=== PATIENT | female | born 1995 | race Caucasian/White ===

== ENCOUNTER 2021-04-24 12:01 | Outpatient (CLI) | payer MEDICAID, SELFPAY ==
[2021-04-24 12:20] VITALS: BP 115/67; PULSE 101
[2021-04-24 12:32] LABS: Nitrazine Paper, PH Negative
[2021-04-24 12:50] VITALS: BMI 26.8
== END 2021-04-24 12:49 | disposition home or self-care (01) ==
LOC: OPOB 12:08 → OBGYN 12:09
PROVIDERS: Visit Provider Family Medicine
DX: O26.899 Other specified pregnancy related conditions, unspecified trimester (principal); Z3A.00 Weeks of gestation of pregnancy not specified; N89.8 Other specified noninflammatory disorders of vagina
CPT/HCPCS: 59025; 83986; 99211

== ENCOUNTER 2021-04-26 19:45 | Inpatient (IN) | payer MEDICAID, SELFPAY ==
[2021-04-26] VITALS (15 sets, daily range): BP systolic 114–131; BP diastolic 55–67; PULSE 83–120; RESP 16–18; TEMP 36.6–36.9
[2021-04-26 19:42] LABS: Basophils # 0.1 10^3/uL (0.0-0.1); Basophils % 0.4 %; Hematocrit 36.3 % (37.0-47.0); Hemoglobin 11.8 g/dL (11.5-15.3); Lymphocytes # 1.8 10^3/uL (0.8-4.8); Lymphocytes % 5.6 %; Mean Corpuscular HGB Conc 32.5 g/dL (30.0-36.0); Mean Corpuscular Hemoglobin 28.4 pg (28.0-34.0); Mean Corpuscular Volume 87.5 fL (81-99); Mean Platelet Volume 10.8 fL (7.4-10.4); Monocytes # 2.2 10^3/uL (0.2-0.9); Monocytes % 6.8 %; Neutrophils # 28.12 10^3/uL (1.8-7.7); Neutrophils % 85.6 %; Nucleated Red Blood Cells % 0 %; Platelet Count 276 10^3/cmm (130-400); Red Blood Count 4.15 10^6/uL (4.1-5.3); Red Cell Distribution Width 13.3 % (12.1-15.1)
[2021-04-26 19:44] LABS: White Blood Count 32.8 10^3/uL (4.0-10.0)
[2021-04-26] MEDS: fentaNYL 50 mcg/mL INJ 2mL IVP (20:29)
[2021-04-26] MEDS: ampicillin 2,000 MG in sodium chloride 0.9% (plus) 50 ML 100 MG IV (20:46)
[2021-04-26] MEDS: ondansetron 2 mg/ML SDV 2 mL 4 MG IVP (20:46)
[2021-04-26] MEDS: lactated ringers 1,000 ML 999 ML IV (20:47)
[2021-04-26] MEDS: dextrose 5%-lactated ringers 1,000 ML 125 ML IV (21:00)
[2021-04-26] MEDS: oxytocin 30 UNIT/500 ML BAG 600 UNIT IV (21:37)
--- NOTE | 2021-04-26 21:49 | PM.DELIVERY ---
Delivery Note: Date of delivery: April 26, 2021 Pre-Delivery Course: The patient is a 25-year-old 2 para 1-0-0-1 with an estimated gestational age of 38 weeks and 2 days who presented to the hospital in active labor. She been having contractions throughout the day that got progressively worse. She seen in the office earlier in the day and was found to be 2 cm dilated and 80% effaced. When she arrived to the hospital she was 3 cm dilated and on a percent effaced. She desired an epidural, but as a part of her CBC, she was found to have a white blood count of 32,000. She had no fever, and no other signs of any infection. Regardless, out of an abundance of caution the patient was placed on ampicillin and gentamicin. An amniotomy was performed. She then progressed to complete without difficulty. Delivery: DELIVERY: The patient progressed to complete without difficulty. She delivered a female with a weight of 7 pounds 3 ounces with Apgars of 7, 9. The baby was delivered from the TREVA position and placed on the mother's abdomen. The cord was then clamped and cut. There was no nuchal cord. There was no obvious meconium initially, but there was meconium stained fluid that was suctioned from the baby's lungs later. The placenta and 3 vessel cord were delivered intact shortly thereafter. The perineum and vaginal vault were carefully examined. No lacerations were noted. Both the mother and the baby were in stable condition. Post-Delivery Status: Good A&P Assessment and plan (1) 38 weeks gestation of : Status: Acute (2) Vaginal delivery: At this point anticipate the patient will have a routine hospital course. Because of her leukocytosis, we will be more mindful of any indications of a fever. We will recheck her CBC in the morning. Status: Acute (3) Leukocytosis: Status: Acute Coding Level of Care Code Acute Superintendent Stations for Chg Fwd Diagnoses 38 weeks gestation of Z3A.38 Vaginal delivery O80 Leukocytosis D72.829
[2021-04-26] MEDS: benzocaine-menthol 78 gm Canister 1 SPRAY TOPICAL (23:56)
[2021-04-26] MEDS: lanolin oint 7 gm 1 APPLIC TOPICAL (23:57)
[2021-04-26] MEDS: HYDROcodone-acetaminophen 5-325 mg Tablet PO (23:57)
[2021-04-27] VITALS (11 sets, daily range): BP systolic 99–115; BP diastolic 52–74; PULSE 67–118; RESP 16; TEMP 36.7–37.3; O2SAT 95–99
[2021-04-27 05:09] LABS: Hemoglobin 11.3 g/dL (11.5-15.3); Mean Corpuscular Volume 89.5 fL (81-99); Red Cell Distribution Width 13.3 % (12.1-15.1)
[2021-04-27 05:26] LABS: Mean Corpuscular HGB Conc 32.3 g/dL (30.0-36.0); Mean Corpuscular Hemoglobin 28.9 pg (28.0-34.0); Mean Platelet Volume 11.2 fL (7.4-10.4); Platelet Count 268 10^3/cmm (130-400); Red Blood Count 3.91 10^6/uL (4.1-5.3)
[2021-04-27 05:29] LABS: White Blood Count 33.8 10^3/uL (4.0-10.0)
[2021-04-27 05:45] LABS: Hematocrit 35.7 % (37.0-47.0); Hemoglobin 11.5 g/dL (11.5-15.3); Mean Corpuscular HGB Conc 32.2 g/dL (30.0-36.0); Mean Corpuscular Hemoglobin 29.1 pg (28.0-34.0); Mean Corpuscular Volume 90.4 fL (81-99); Mean Platelet Volume 11.4 fL (7.4-10.4); Platelet Count 277 10^3/cmm (130-400); Red Blood Count 3.95 10^6/uL (4.1-5.3); Red Cell Distribution Width 13.2 % (12.1-15.1)
[2021-04-27 06:04] LABS: White Blood Count 33.6 10^3/uL (4.0-10.0)
[2021-04-27 06:05] LABS: Absolute Neutrophil 29.6 10^3/cmm (1.4-6.5); Absolute Segmented Neutrophil 25.5 10/cmm (1.6-7.1); Eosinophils 0 %; Giant Platelets Trace; Lymphocytes 8 %; Platelet Estimate Normal (Normal); Segmented Neutrophils 76 %; Total Cells Counted 100 (0-100)
[2021-04-27] MEDS: HYDROcodone-acetaminophen 5-325 mg Tablet PO (07:23)
[2021-04-27] MEDS: ibuprofen 800 mg tablet PO ×2 (09:10→21:01)
[2021-04-27] MEDS: docusate sodium 100 mg Capsule PO (09:10)
--- NOTE | 2021-04-27 19:40 | PM.OBGYDC ---
Discharge Providers CUSTOMER ACCOUNT REPRESENTATIVE Date of Admission: 04/26/21 19:45 Date of Discharge: 04/27/21 Attending Provider at Admission: Nabeel Pradhan MD Attending Provider at Discharge: Nabeel Pradhan MD Diagnoses at Discharge Discharge Diagnosis (1) 38 weeks gestation of : Status: Acute (2) Vaginal delivery: Status: Acute (3) Leukocytosis: Status: Acute Reason for Visit Reason for Visit: contractions Hospital Course Hospital Course The patient presented to the hospital in active labor. She desired an epidural but was found to have a white blood count of 32,000. She had no other signs of infection. She does have a boy at home that was recently diagnosed with croup. She had no upper respiratory symptoms. An amniotomy was performed. She progressed to complete within 2 hours. She pushed through several contractions and delivered a healthy appearing infant with no problems. There was no sign of chorioamnionitis. Out of an abundance of caution, she was given a dose of both ampicillin and gentamicin. The delivery was unremarkable. She had no tears. Her course was also unremarkable. She breast-fed well. She had minimal bleeding. Her pain was well controlled with ibuprofen. There were no concerns. Information Peripartum Data: Delivery Method: Vaginal Physical Exam Narrative: EXAM NARRATIVE: The patient is alert. She appears comfortable. Her heart has a regular rate and rhythm with no murmurs appreciated. Lungs are clear to auscultation bilaterally. Her fundus is firm and below the umbilicus. Discharge Data Data Completed and Pending: Labs from last 24 hours 04/27/21 04/27/21 04/27/21 19:27 03:50 03:50 WBC 33.6 H* 33.8 H* RBC 3.95 L 3.91 L Hgb 11.5 11.3 L Hct 35.7 L 35.0 L MCV 90.4 89.5 MCH 29.1 28.9 MCHC 32.2 32.3 RDW 13.2 13.3 Plt Count 277 268 MPV 11.4 H 11.2 H Neut % (Auto) Lymph % (Auto) [place] % (Auto) Eos % (Auto) Baso % (Auto) Neut # (Auto) Lymph # (Auto) [place] # (Auto) Eos # (Auto) Baso # (Auto) Nucleated RBC % (a uto) Total Counted 100 Atypical Lymphs % 1.0 Absolute Neutrophi ls 29.6 H Segmented Neutroph ils 76 Abs Segm Neuts (Ma n) 25.5 H Band Neutrophils 12.0 Abs Band Neuts (Ma n) 4.0 H Absolute Lymphocyt es 3.0 Lymphocytes (Man[place] l) 8 Monocytes (Manual) 3.0 Absolute Monocytes 1.0 H Eosinophils (Manua l) 0 Absolute Eosinophi ls 0.0 Basophils (Manual) 0.0 Absolute Basophils 0.0 Nucleated RBCs # Platelet Estimate Normal Giant Platelets Trace Blood Type Cancelled Rho(D) Type Cancelled Antibody Screen Cancelled Antibody Identific ation Cancelled Screen 04/27/21 04/26/21 04/26/21 03:50 19:27 19:27 WBC 32.8 H* RBC 4.15 Hgb 11.8 Hct 36.3 L MCV 87.5 MCH 28.4 MCHC 32.5 RDW 13.3 Plt Count 276 MPV 10.8 H Neut % (Auto) 85.6 Lymph % (Auto) 5.6 [place] % (Auto) 6.8 Eos % (Auto) 0.0 Baso % (Auto) 0.4 Neut # (Auto) 28.12 H Lymph # (Auto) 1.8 [place] # (Auto) 2.2 H Eos # (Auto) 0.0 Baso # (Auto) 0.1 Nucleated RBC % (a uto) 0 Total Counted Atypical Lymphs % Absolute Neutrophi ls Segmented Neutroph ils Abs Segm Neuts (Ma n) Band Neutrophils Abs Band Neuts (Ma n) Absolute Lymphocyt es Lymphocytes (Man[place] l) Monocytes (Manual) Absolute Monocytes Eosinophils (Manua l) Absolute Eosinophi ls Basophils (Manual) Absolute Basophils Nucleated RBCs # 0.0 Platelet Estimate Giant Platelets Blood Type O Negative Rho(D) Type Negative / 0 Antibody Screen Positive Antibody Identific ation Anti-D Screen Negative Vitals: Last Vital Signs Temp 98.1 F 04/27/21 16:15 Pulse 67 04/27/21 16:15 Resp 16 04/27/21 16:15 BP 106/66 04/27/21 16:15 Pulse Ox 99 04/27/21 16:15 Discharge Plan Discharge Patient Disposition: Home Condition: Stable Prescriptions: New ibuprofen 800 mg Tablet 800 mg PO TID Qty: 30 RF: 0 -U 106.5-1 mg Capsule 1 cap PO DAILY Qty: 90 RF: 1 Referrals: Nabeel Pradhan MD [Physician] - 06/10/21 11:15 am (Your 6 week post- appointment is scheduled for 06/10 @11:[address] Pradhan. Please also set up appointment for 1 week when the baby is seen. Have her get a CBC done at the same time.) Discharge Diet: Usual diet Discharge Activity: Resume usual activity Patient Instructions: Vitamins (By mouth), Pre-eclampsia and Eclampsia (DC), Bleeding (DC), OB Discharge Report, OB Food/Drug Interaction Guide, Opioid Safety, OB Vaginal Deliveries - [facility] Discharge Attestations CUSTOMER ACCOUNT REPRESENTATIVE Time Spent in Discharge Care*: less than 30 min Specific Discharge Activities: Specific discharge activities: educating patient Coding Level of Care Code Acute Professor Of Finance for Chg Fwd Diagnoses 38 weeks gestation of Z3A.38 Vaginal delivery O80 Leukocytosis D72.829
== END 2021-04-27 22:40 | disposition home or self-care (01) | DRG 807 ==
LOC: OPOB 21:49 → OBGYN 21:49
PROVIDERS: Admitting Provider Family Medicine; Visit Provider Family Medicine
DX: O75.89 Other specified complications of labor and delivery (principal); Z37.0 Single live birth; D72.829 Elevated white blood cell count, unspecified; O26.893 Other specified pregnancy related conditions, third trimester; Z3A.38 38 weeks gestation of pregnancy; Z67.41 Type O blood, Rh negative
CPT/HCPCS: 12345; 36415; 59025; 59409; 80500; 85007; 85025; 85027; 85460; 86850; 86870; 86900; 90384; 96374; 96375; 98960; 99211; J0290; J1580; J2405; J3010

== ENCOUNTER → 2021-09-16 12:08 | Outpatient (BNVA) | payer OTHER, SELFPAY | PROVIDERS: Visit Provider Nurse Practitioner Family | DX: F41.9 Anxiety disorder, unspecified (principal); F32.A Depression, unspecified; R53.83 Other fatigue | CPT/HCPCS: 80053; 84443; 85025 ==

== ENCOUNTER → 2025-07-30 09:16 | Outpatient (BNVA) | payer MEDICAID, SELFPAY | PROVIDERS: Visit Provider Clinical Nurse Specialist Adult Health | DX: Z30.9 Encounter for contraceptive management, unspecified (principal) | CPT/HCPCS: 81025 ==

== ENCOUNTER → 2025-11-11 08:25 | Outpatient (BNVA) | payer MEDICAID, SELFPAY | PROVIDERS: PCP Clinical Nurse Specialist Adult Health; Visit Provider Clinical Nurse Specialist Adult Health | DX: F41.9 Anxiety disorder, unspecified (principal); F32.A Depression, unspecified | CPT/HCPCS: 80053; 80061; 82306; 82607; 84443; 85025 ==